=== PATIENT | female | born 1990 ===

== ENCOUNTER 2018-03-20 03:58 | Emergency (ER) | payer OTHER ==
[2018-03-20 04:00] VITALS: BMI 28.3
[2018-03-20 04:01] VITALS: BP 111/53; PULSE 108; RESP 18; TEMP 98; O2SAT 97
[2018-03-20] MEDS ORDERED: Naproxen 500 MG TAB PO STA (04:32)
[2018-03-20] MEDS ORDERED: Naproxen 500 MG TAB PO ONE (04:45)
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
--- NOTE | 2018-03-20 10:00 | RAD ---
Date of service: 03/20/2018 PROCEDURE: Right Foot Radiographs. HISTORY: pain COMPARISON: None. FINDINGS: BONES: Normal. No fracture. JOINTS: Normal. SOFT TISSUES: Normal. OTHER FINDINGS: None. IMPRESSION: Normal right foot radiographs.
--- NOTE | 2018-03-20 10:03 | ED PDOC ---
- ECG O2 Sat by Pulse Oximetry: 97 Disposition - Clinical Impression Clinical Impression: Foot fracture - POA Present On Arrival: None - Disposition Referrals: Saji Rod DPM [Staff Provider] - Disposition: Routine/Home Disposition Time: 10:00 Condition: FAIR Prescriptions: traMADol [Ultram] 50 mg PO Q8 #10 tab Instructions: Foot Fracture (DC) Forms: [employer] (Gibraltarian)
--- NOTE | 2018-03-20 15:51 | CT ---
Date of service: 03/20/2018 PROCEDURE: CT right foot HISTORY: r/o lisfranc dislocation COMPARISON: Not available TECHNIQUE: 2.5 mm contiguous axial sections were acquired through the right foot. Sagittal and coronal images were reformatted from the axial scan. FINDINGS: There is extensively comminuted fracture of the medial cuneiform. There is minimal displacement of some of the fracture fragments. There is multifocal minimally displaced fracture of the middle cuneiform. There is minimally displaced fracture of the medial aspect of the lateral cuneiform. The cuboid is intact. There is nondisplaced fracture through the base of the 1st metatarsal and 2nd metatarsal. No 3rd metatarsal fracture is identified. These fractures are of only evident in the thin 0.63 mm sections. There is no displacement/ dislocation at the tarsal -metatarsal articulations. There are no phalangeal fractures identified. The calcaneus and talus are intact. The subtalar articulations are unremarkable. The tibiotalar articulation is unremarkable. IMPRESSION: Multiple fractures including 3 cuneiform spur as well as the base of the 1st and 2nd metatarsal. No evidence displacement at the tarsal -metatarsal articulations to suggest Lisfranc ligament disruption. However, this is better evaluated with magnetic resonance imaging if clinically suspected.
== END 2018-03-20 10:22 | disposition home or self-care (01) ==
LOC: H.ER 03:58
DX: S92.901A Unspecified fracture of right foot, initial encounter for closed fracture (principal); V43.52XA Car driver injured in collision with other type car in traffic accident, initial encounter; Y92.410 Unspecified street and highway as the place of occurrence of the external cause